=== PATIENT | female | born 1985 | race Caucasian/White ===

== ENCOUNTER 2016-08-22 06:33 | Day surgery (SDC) | payer BC ==
[~2016-08-22 06:33] MED LIST: Buffered Lidocaine 0.9% SYRIN* 5 ML/SYR SYRINGE INTRADERM ONE; Buffered Lidocaine 0.9% SYRIN* 5 ML/SYR SYRINGE ONE; Dexamethasone IV* 4 MG/ML 1 ML (4 MG) IV SLOW PU ONE; Dexamethasone IV* 4 MG/ML 1 ML (4 MG) ONE; Famotidine IV* 10 MG/ML 2 ML (20 mg) IV ONE; Famotidine IV* 10 MG/ML 2 ML (20 mg) ONE; Scopolamine 1.5 mg* PATCH ONE; Scopolamine 1.5 mg* PATCH TRANSDERM ONE
[2016-08-22] MEDS ORDERED: BSS OPTH.SOL* BTL ONE (07:21)
[2016-08-22] MEDS ORDERED: Neomycin/Polymy/Dex OPHTH.OIN* 3.5 GM ONE (07:22)
[2016-08-22] MEDS ORDERED: Tetracaine 0.5% OPTH.SOL 4 ML* 1 DROP BTL ONE (07:22)
[2016-08-22] MEDS ORDERED: Phenylephrine 2.5% OPTH.SOL* 2 ML BTL ONE (07:22)
[2016-08-22] MEDS ORDERED: Atracurium* 10 MG/ML 10 ML VIAL ONE (07:35)
[2016-08-22] MEDS ORDERED: Midazolam* 1 MG/ML 5 ML VIAL (5 MG) ONE (07:37)
[2016-08-22] MEDS ORDERED: fentaNYL* 50 MCG/ML 5 ML VIAL (250 MCG VIAL) ONE (07:37)
[2016-08-22] MEDS ORDERED: Ketorolac INJ* 30 MG/ML 1 ML VIAL ONE ×2 (07:38→08:21)
[2016-08-22] MEDS ORDERED: Ondansetron INJ* 2 MG/ML VIAL ONE ×2 (07:38→08:21)
[2016-08-22] MEDS ORDERED: Propofol* 10 MG/ML 20 ML BTL IV PUSH ONE ×2 (07:38→08:21)
[2016-08-22] MEDS ORDERED: Lidocaine 2% PF * 5 ML VIAL ONE ×2 (07:38→08:21)
[2016-08-22] MEDS ORDERED: fentaNYL* 50 MCG/ML 2 ML VIAL (100 MCG VIAL) ONE (08:07)
[2016-08-22] MEDS ORDERED: Ondansetron INJ* 2 MG/ML VIAL IV PRN (08:09)
[2016-08-22] MEDS ORDERED: oxyCODONE/Acetamin 5/325 MG* TAB PO PRN (08:09)
[2016-08-22] MEDS ORDERED: fentaNYL* 50 MCG/ML 2 ML VIAL (100 MCG VIAL) IV PRN (08:09)
[2016-08-22] MEDS ORDERED: DiMENhydriNATE IV* 50 MG/ML VIAL IV PUSH PRN (08:09)
[2016-08-22] MEDS ORDERED: Atropine 1MG/ML INJ* 1 ML VIAL ONE (08:21)
[2016-08-22] MEDS ORDERED: Glycopyrrolate IV* 0.2 MG/ML 1 ML VIAL ONE (08:21)
[2016-08-22 09:39] VITALS: BP 128/93
--- NOTE | 2016-08-23 01:05 | OP ---
DATE OF OPERATION: 08/22/16 [facility] DATE OF : 85 SURGEON: Jose Watson MD [employer]UMBER [employer] TINNER: None. ANESTHESIA: General. 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 OPERATIVE PROCEDURE: Recess each medial rectus muscle 3.5 mm. COMPLICATIONS: None. BLOOD LOSS: None. DESCRIPTION OF PROCEDURE: The patient was brought to the operating room and received general anesthesia without any complications. A drop of tetracaine and a drop of phenylephrine were placed in each eye. The patient was prepped and draped in the usual sterile fashion for ophthalmic surgery and attention was directed to the left eye, where a speculum was placed. Forced duction was performed and found to be normal. The eye was grasped at the inferonasal quadrant near the limbus on the conjunctiva and brought to superotemporal gaze. An inferonasal fornix incision was created with a Maggi scissors. Tenon's capsule was violated and the medial rectus muscle was isolated with a Luis E muscle hook. The conjunctiva was reflected over the surface of the muscle and the hook. The check ligament was opened. The muscle was gently cleaned with sharp and blunt dissection. A double- armed 6-0 Vicryl suture was woven into the muscle near the insertion and locked at either end. The muscle was disinserted from the globe with the Maggi scissors. The original insertion site was grasped with interrupted locking forceps. The muscle was inspected and found to be secure on the suture. Hemostasis at the original insertion site was achieved with gentle cauterization. A seda was made on the sclera 3.5 mm posterior to the original insertion with a caliper. The muscle was recessed to this point and tied securely. Sutures were trimmed. The muscle was inspected and found to be in good position. The locking forceps were removed. The conjunctiva was then closed with interrupted 6-0 gut sutures. The eye was irrigated and the speculum was removed. The speculum was replaced on the right eye where the exact same procedure was performed. At the end of the case, topical tetracaine eye drops was placed in each eye followed by Maxitrol ointment. The patient was awakened uneventfully and sent to the recovery room in stable condition with postop instructions and followup appointment given. [id number]/[facility] #: [id number] [facility]ITALRadha
[2016-08-25] MEDS ORDERED: Scopolomine PATCH Remove* 1 NOTE MISC PATCH OFF ONE (06:00)
== END 2016-08-22 09:59 | disposition home or self-care (01) ==
LOC: OREAST 06:33
PROVIDERS: ATTEND Ophthalmology
DX: H50.05 Alternating esotropia (principal)
CPT/HCPCS: 81025; A9270-GY; J0461; J1100; J1885; J2250; J2405; J2704; J3010